=== PATIENT | born 1975 | race Caucasian/White ===

== ENCOUNTER 2021-03-26 11:49 | Outpatient (REF) | payer OTHER, SELFPAY ==
[2021-03-26 12:48] LABS: MANUAL DIFF FLAG NO
[2021-03-26 13:00] LABS: Basophils Absolute Auto 0.1 X10*3/uL; Basophils Percent Auto 0.6 %; Eosinophils Absolute Auto 0.2 X10*3/uL; Eosinophils Percent Auto 2.4 %; Hematocrit 44.8 %; Hemoglobin 15.1 g/dl; Imm Gran Abs Auto 0.02 X10*3/uL (0.00-0.03); Imm Gran Pct Auto 0.2 % (0.0-0.4); Lymphocytes Absolute Auto 1.7 X10*3/uL; Lymphocytes Percent Auto 19.6 %; Mean Corpuscular HGB Conc 33.7 g/dl; Mean Corpuscular Hemoglobin 29.4 pg; Mean Corpuscular Volume 87.3 fL; Mean Platelet Volume 9.5 fL (9.4-12.4); Monocytes Absolute Auto 0.8 X10*3/uL; Monocytes Percent Auto 8.9 %; Neutrophils Absolute Auto 6.1 x10*3/uL; Neutrophils Percent Auto 68.3 %; Platelet Count 358 X10*3/uL; Red Blood Count 5.13 X10*6/uL; Red Cell Distribution Width 13.1 % (11.0-16.0); White Blood Count 8.9 X10*3/uL
[2021-03-26 14:15] LABS: Alanine Aminotransferase 22 U/L; Albumin Level 4.1 g/dL; Alkaline Phosphatase 64 U/L; Anion Gap 10; Aspartate Amino Transferase 22 U/L; Bilirubin Total 0.6 mg/dL; Carbon Dioxide 25 mmol/L; Chloride 109 mmol/L; Cholesterol 188 mg/dL; Estimated Glomerular Filt Rate > 60; Gamma Glutamyl Transpeptidase 24 U/L; Glucose Fasting 100 mg/dL; HDL Cholesterol 32 mg/dL; LDL Cholesterol Calculated 131 mg/dl; Potassium 4.5 mmol/L; Sodium 139 mmol/L; Total Protein 6.6 g/dL; Triglycerides 129 mg/dL
[2021-03-26 14:21] LABS: TSH reflex Free T4 0.92 uIU/mL
[2021-03-26 15:09] LABS: Blood Urea Nitrogen 11 mg/dL; Calcium 9.1 mg/dL
[2021-03-26 15:42] LABS: Estimated Average Glucose 103 mg/dL; Hemoglobin A1c % 5.2 %
[2021-03-26 22:50] LABS: Folate 14.6 ng/mL; Vitamin B12 363 pg/mL
[2021-03-31 13:27] LABS: Vitamin D 25-OH, D2 <4 ng/mL; Vitamin D 25-OH, D3 21 ng/mL; Vitamin D 25-OH, Total 21 ng/mL (30-100)
[2021-04-02 01:12] LABS: Testosterone, Total 530 ng/dL (see note)
== END 2021-03-26 11:50 | disposition home or self-care (01) ==
LOC: HO.LAB 11:49
PROVIDERS: PCP Nurse Practitioner Acute Care; Visit Provider Nurse Practitioner Acute Care
DX: Z00.00 Encounter for general adult medical examination without abnormal findings (principal)
CPT/HCPCS: 36415; 80053; 80061; 82306; 82607; 82746; 82977; 83036; 84403; 84443; 85025